=== PATIENT | male | born 1995 | race Caucasian/White ===

== ENCOUNTER 2019-02-10 11:07 | Emergency (ER) | payer OTHER ==
[~2019-02-10] VITALS: Wt 106.0 kg
[2019-02-10 11:09] VITALS: BP 150/74; PULSE 70; RESP 18
[2019-02-10] MEDS ORDERED: KETOROLAC 60 MG INJ IM STA (11:34)
[2019-02-10] MEDS ORDERED: IBUP800T48 PO (11:36)
[2019-02-10] MEDS ORDERED: CYCL10TA7 PO (11:36)
[2019-02-10] MEDS ORDERED: HYDR-4011 PO (11:36)
--- NOTE | 2019-02-10 11:40 | ERD ---
ER Documentation Chief Complaint Chief Complaint lower back pain since last night. no trauma. constant lifting for work HPI This is a 23-year-old male with a history of back pain who presents ED with flareup of back pain that started last night. Patient does constant heavy lifting at work. Patient denies any recent trauma or fall to account for back pain. Patient admits to painful range of motion with flexion as well as decreased range of motion. Denies fever, chills, tingling, numbness, lack sensation, saddle paresthesias, bowel/bladder incontinence, history of IV drug abuse. ROS All systems reviewed and are negative except as per history of present illness. Medications Home Meds Active Scripts Ibuprofen* (Motrin*) 800 Mg Tab, 800 MG PO Q6, #30 TAB Prov:ASA GAY PA-C 02/10/19 Cyclobenzaprine Hcl* (Cyclobenzaprine Hcl*) 10 Mg Tablet, 10 MG PO TID, #15 TAB Prov:ASA GAY PA-C 02/10/19 Hydrocodone/Acetaminophen (Amboy 5-325 Tablet) 1 Each Tablet, 1 TAB PO Q6H PRN for PAIN, #7 TAB Prov:ASA GAY PA-C 02/10/19 Allergies Allergies: Coded Allergies: No Known Allergy (Unverified , 02/24/14) PMhx/Soc History of Surgery: No Anesthesia Reaction: No Hx Neurological Disorder: No Hx Respiratory Disorders: No Hx Cardiac Disorders: No Hx Psychiatric Problems: No Hx Miscellaneous Medical Probl: No Hx Alcohol Use: No Hx Substance Use: No Hx Tobacco Use: No FmHx Family History: No diabetes Physical Exam Vitals Vital Signs Date Temp Pulse Resp B/P (MAP) Pulse Ox O2 O2 Flow FiO2 Time Delivery Rate 02/10/19 97.2 70 18 150/74 99 11:09 (99) Physical Exam Const: No acute distress Head: Atraumatic Eyes: Normal Conjunctiva ENT: Normal External Ears, Nose and Mouth. Neck: Full range of motion. No meningismus. Resp: Clear to auscultation bilaterally Cardio: Regular rate and rhythm, no murmurs Back: No thoracic or lumbar midline tenderness, mild tenderness palpation along the paravertebral muscles in the lumbar spine, some decreased range of motion with forward flexion, no decreased range of motion with extension and left and right lateral rotation Ext: No cyanosis, or edema Neur: Awake and alert Psych: Normal Mood and Affect Results 24 hrs Current Medications Medications Dose Sig/Mali Start Time Status Last (Trade) Ordered Route PRN Stop Time Admin Dose Reason Admin Ketorolac 60 mg ONCE STAT 02/10/19 DC Tromethamine IM 11:34 (Toradol) 02/10/19 11:35 Procedures/MDM ER COURSE: The patient was given Toradol The medication was well tolerated and the patient reports improvement in symptoms. The patient was stable throughout ED course. I kept the patient and/or family informed of laboratory and diagnostic imaging results throughout the emergency room course. The patient was promptly evaluated and a treatment plan was devised based on H&P and other data. This plan was discussed with the patient who agreed and had no further questions or concerns prior to discharge. [employer]KIN-year-old male presents ED with back pain since last night. This is likely muscle related given patient's constant heavy lifting at work. History and physical examination other data not consistent with processing including cauda equina syndrome, cord compression, infiltrative etiology, infectious etiology, epidural abscess, fracture, obstructive pyelonephritis, abdominal aortic aneurysm. Vitals are stable and patient can be managed outpatient with close follow-up. Advised patient to follow up with primary care in the next 48 hours. return to ED with any worsening symptoms DISPOSITION PLAN: We discussed follow up with the patient's primary care doctor within 24 to 48 hours. Patient counseled regarding my diagnostic impression and care plan. Prior to discharge all questions answered. Pt agrees with treatment plan and understands strict return precautions. Precautionary instructions provided including instructions to return to the ER if not improving or for any worsening or changing symptoms or concerns. SPECIALIST FOLLOW UP RECOMMENDED: None Patient has been advised to follow up with primary care in 1-2 days. Disclaimer: Inadvertent spelling and grammatical errors are likely due to EHR/dictation software use and do not reflect on the overall quality of patient care. Also, please note that the electronic time recorded on this note does not necessarily reflect the actual time of the patient encounter. Blood Pressure Assessment: Patient's blood pressure was elevated (>120/80) but appears stable without evidence of hypertension emergency or urgency. The patient was counseled about the risks of hypertension and urged to pursue outpatient monitoring and therapy within a week with their primary care physician. Departure Diagnosis: Primary Impression: Back pain Back pain location: low back pain Chronicity: acute Back pain laterality: bilateral Sciatica presence: without sciatica Qualified Codes: M54.5 - Low back pain Condition: Stable Patient Instructions: Back Pain (Acute Or Chronic) Referrals: NNEKA WEST MD (PCP) Additional Instructions: Patient advised to return to the ED immediately for new or worsening symptoms. Patient advised to follow up with primary care provider in the next 24-48 hours. Patient verbalized understanding and agrees with treatment plan and course of action. If patient has no primary care they may follow up with one of the community cl inics listed on the following page or one of the options listed below [facility] + [address] [id number] or [facility] [address] [place] [address] or [facility] [address] [place] [address] ASA GAY PA-C Feb 10, 2019 11:40
== END 2019-02-10 11:58 | disposition home or self-care (01) ==
LOC: FTE 11:07
DX: M54.5 Low back pain (principal)
CPT/HCPCS: 96372; J1885; Z7502